=== PATIENT | female | born 1940 ===

== ENCOUNTER → 2021-05-29 08:53 | Outpatient (CLI) | payer MEDICARE, SELFPAY ==
--- NOTE | ~2021-05-29 | MR_ITS ---
EXAMINATION: MR hip LT wo con DATE: 05/29/2021 10:54 INDICATION: Left hip pain. Stress fracture. TECHNIQUE: Magnetic resonance imaging (MRI) of the left hip was performed without intravenous contras t. Sequences included axial and coronal PD-weighted FS FSE and axial T1-weighted FSE of the pelvis. S equences of the hip included 2D FIESTA, T1-weighted fast GRE, and axial, coronal, and sagittal PD-lb ghted FS FSE. 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 No fracture. There is mild left hip osteoarthri tis. Labrum: There is a tear of the left acetabular labrum. Fluid: There is a small left hip joint effusion. There is mild left trochanteric bursitis. Soft tissues: There is moderate tendinopathy of the hamstring origin. The iliopsoas tendon is normal. There is mild tendinopathy of the gluteus minimus. There is a partial tear of gluteus medius tendon. IMPRESSION: 1. No fracture. 2. Mild left hip osteoarthritis. 3. Small left hip joint effusion. 4. Partial tear of left gluteus medius tendon. 5. Mild left trochanteric bursitis. Reviewed, dictated and finalized at location A.
--- NOTE | ~2021-05-29 | MR_ITS ---
EXAMINATION: MR lumbar spine wo con DATE: 05/29/2021 11:09 INDICATION: Low back pain. TECHNIQUE: Magnetic resonance imaging (MRI) of the lumbar spine was performed without intravenous con trast. Sequences included sagittal T2-weighted FSE, sagittal T2-weighted FS FSE, sagittal T1-weighted FSE, and axial T2-weighted FSE. COMPARISON: None FINDINGS: There is 17 degrees levoscoliosis of lumbar spine. There is 3 mm retrolisthesis of L3 on L4 . Vertebral body heights are normal. There is moderately decreased disc at L2-L3, severely decreased disc height at L3-L4, and mildly decreased disc height at L4-L5 and L5-S1. There is ligamentum flavum hypertrophy at all lumbar disc levels. The distal spinal cord signal intensity is normal. The conus medullaris is at L1. The following disc levels are specifically discussed: L1-L2: The disc does not extend beyond the endplate margin. There is mild bilateral facet joint osteo arthritis. There is no neural foraminal stenosis. There is no central canal stenosis. L2-L3: The disc is bulging. There is moderate bilateral facet joint osteoarthritis. There is mild senia ateral neural foraminal stenosis. There is mild central canal stenosis. L3-L4: The disc is bulging and has an annular fissure. There is mild bilateral facet joint osteoarthr itis. There is moderate bilateral neural foraminal stenosis. There is mild central canal stenosis. Th ere is moderate stenosis of the lateral recesses bilaterally. L4-L5: The disc is bulging and has an annular fissure. There is moderate and severe left facet joint osteoarthritis. There is mild right and moderate left neural foraminal stenosis. There is mild centra l canal stenosis. There is moderate stenosis of the lateral recesses bilaterally. L5-S1: The disc is bulging and has an annular fissure. There is moderate bilateral facet joint osteoa rthritis. There is mild bilateral neural foraminal stenosis. There is mild central canal stenosis. Th ere is moderate stenosis of left lateral recess. IMPRESSION: 1. Severe lumbar spondylosis. Reviewed, dictated and finalized at location A.
--- NOTE | ~2021-05-29 | MR_ITS ---
EXAMINATION: MR hip RT wo con DATE: 05/29/2021 11:05 INDICATION: Right hip pain. Stress fracture. TECHNIQUE: Magnetic resonance imaging (MRI) of the right hip was performed without intravenous contra st. Sequences included axial and coronal PD-weighted FS FSE and axial T1-weighted FSE of the pelvis. Sequences of the hip included 2D FIESTA, T1-weighted fast GRE, and axial, coronal, and sagittal PD-we ighted FS FSE. 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 No fracture. There is mild right hip osteoarthr itis. Labrum: There is a tear of the right acetabular labrum. Fluid: There is a small right hip joint effusion. There is mild right trochanteric bursitis. Soft tissues: There is mild tendinopathy of the hamstring origin. The iliopsoas tendon is normal. There is mild glu teus minimus tendinopathy. There is a small partial tear of the gluteus medius tendon. IMPRESSION: 1. No fracture. 2. Mild right hip osteoarthritis. 3. Small right hip joint effusion. 4. Small partial tear of right gluteus medius tendon. 5. Mild right-sided trochanteric bursitis. Reviewed, dictated and finalized at location A.
== END ==
PROVIDERS: PCP Internal Medicine; Visit Provider Internal Medicine
DX: M54.5 Low back pain (principal); M25.452 Effusion, left hip; M25.451 Effusion, right hip; M16.0 Bilateral primary osteoarthritis of hip; S76.012A Strain of muscle, fascia and tendon of left hip, initial encounter; S76.011A Strain of muscle, fascia and tendon of right hip, initial encounter; M71.552 Other bursitis, not elsewhere classified, left hip; M71.551 Other bursitis, not elsewhere classified, right hip; M47.816 Spondylosis without myelopathy or radiculopathy, lumbar region
CPT/HCPCS: 72148; 73721

== ENCOUNTER → 2021-08-07 08:55 | Outpatient (CLI) | payer MEDICARE, SELFPAY ==
--- NOTE | ~2021-08-07 | XR_ITS ---
XR ankle LT 2V 08/07/2021 13:21 Indication: Left ankle pain Procedure: 4 views left ankle Comparison: No prior studies for comparison. Findings: No fracture, subluxation or dislocation. Ankle mortise intact. Talar dome is normal. Extens gisela vascular calcifications. Talar dome is normal. Impression: 1: No significant bone or joint abnormality. Reviewed, dictated and finalized at location A. Impression: 1: No significant bone or joint abnormality.
--- NOTE | ~2021-08-07 | XR_ITS ---
XR foot RT 2V 08/07/2021 13:21 Indication: Right foot pain Procedure: 2 views right foot Comparison: No prior studies Findings: Osteopenia. Mild osteoarthritis of the first MTP joint. Lisfranc joint intact. There are ar terial calcifications. No acute fracture or traumatic malalignment. Impression: 1: Mild osteoarthritis of the first MTP joint. Reviewed, dictated and finalized at location A. Impression: 1: Mild osteoarthritis of the first MTP joint.
--- NOTE | ~2021-08-07 | XR_ITS ---
XR ankle RT 2V 08/07/2021 13:21 Indication: Right ankle pain Procedure: 2 views right ankle Comparison: No prior studies for comparison. Findings: Osteopenia. Extensive arterial calcifications. No fracture or traumatic malalignment. Ankle mortise intact. Talar dome within normal limits. Impression: 1: No significant bone or joint abnormality. Reviewed, dictated and finalized at location A. Impression: 1: No significant bone or joint abnormality.
--- NOTE | ~2021-08-07 | XR_ITS ---
XR wrist LT 2V, XR hand LT 2V 08/07/2021 13:21 Indication: Left wrist and hand pain Procedure: 2 views left wrist and left hand Comparison: No prior studies for comparison. Findings: Osteopenia. There is osteoarthritis of the first CMC joint. No fracture, subluxation or dis location. There are degenerative changes of the interphalangeal joints as well as the first and secon d MCP joints. No fracture or traumatic malalignment. 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 Reviewed, dictated and finalized at location A. 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
--- NOTE | ~2021-08-07 | XR_ITS ---
XR foot LT 2V 08/07/2021 13:21 Indication: Left foot pain Procedure: 2 views left foot Comparison: No prior studies for comparison. Findings: Osteopenia. Extensive arterial calcifications. Mild osteoarthritis of the first MTP joint. No fracture or traumatic malalignment. Impression: 1: Mild osteoarthritis of the first MTP joint. Reviewed, dictated and finalized at location A. Impression: 1: Mild osteoarthritis of the first MTP joint.
--- NOTE | ~2021-08-07 | XR_ITS ---
XR wrist RT 2V, XR hand RT 2V 08/07/2021 13:21 Indication: Joint pain. Lupus. Procedure: 3 views of the right wrist and 2 views of the right hand Comparison: No prior studies for comparison. Findings: There is polyarticular osteoarthritis involving the triscaphe joint, first CMC joint, first , second and third MCP joints and multiple interphalangeal joints. No acute fracture or traumatic mal alignment. There is osteopenia. No focal soft tissue abnormality. No foreign bodies. Impression: 1: Moderate polyarticular osteoarthritis of the right hand and wrist. Reviewed, dictated and finalized at location A. Impression: 1: Moderate polyarticular osteoarthritis of the right hand and wrist. Impression: 1: Moderate polyarticular osteoarthritis of the right hand and wrist.
--- NOTE | ~2021-08-07 | XR_ITS ---
XR sacroiliac joints min 3V 08/07/2021 13:21 Indication: Joint pain Procedure: 4 views of the sacroiliac joints Comparison: No prior studies for comparison. Findings: Sacroiliac joints are symmetric without significant degenerative change, erosion or ankylos is. No fracture or traumatic malalignment. Surrounding osseous structures within normal limits. Impression: 1: No significant abnormality of the sacroiliac joints. Reviewed, dictated and finalized at location A. Impression: 1: No significant abnormality of the sacroiliac joints.
== END ==
PROVIDERS: PCP Internal Medicine
DX: M25.50 Pain in unspecified joint (principal); R53.81 Other malaise; M79.10 Myalgia, unspecified site; M19.072 Primary osteoarthritis, left ankle and foot; M19.031 Primary osteoarthritis, right wrist; M19.041 Primary osteoarthritis, right hand; M19.032 Primary osteoarthritis, left wrist; M19.042 Primary osteoarthritis, left hand
CPT/HCPCS: 72202; 73100; 73120; 73600; 73620

== ENCOUNTER → 2021-11-18 13:56 | Outpatient (CLI) | payer MEDICARE, SELFPAY ==
--- NOTE | ~2021-11-18 | US_ITS ---
EXAMINATION: US thyroid DATE: 11/18/2021 14:24 INDICATION: Goiter. TECHNIQUE: Multiple ultrasound images of the thyroid were obtained. COMPARISON: None. FINDINGS: The right thyroid lobe measures 4.1 x 1.3 x 1.2 cm. The left thyroid lobe measures 4.1 x 1.2 x 1.1 c m. In the left thyroid lobe, there is a 10 mm solid, hypoechoic, [id number]-[id number] nodule with ill-def ined margin without echogenic foci (TI-RADS TR4). In the right thyroid lobe, there is a 4 mm nodule. In the left thyroid isthmus, there is a 6 mm solid, hypoechoic, [id number] nodule with smooth ma rgin without echogenic foci (TR4). In the left thyroid lobe, there is a 4 mm nodule. IMPRESSION: 1. Thyroid nodules. Given the patient's age, follow-up imaging is likely not needed. Reviewed, dictated and finalized at location A. 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 Thyroid nodules. Given the patient's age, follow-up imaging is likely not ne eded.
== END ==
PROVIDERS: PCP Internal Medicine; Visit Provider Internal Medicine Endocrinology, Diabetes & Metabolism
DX: E04.2 Nontoxic multinodular goiter (principal)
CPT/HCPCS: 76536